=== PATIENT | male | born 1980 ===

== ENCOUNTER 2017-04-11 12:35 | Outpatient (CLI) | payer SELFPAY | END 2017-04-11 12:36 | disposition EMS.NT | LOC: EMS 12:35 | PROVIDERS: ATTEND Surgery | DX: Z04.1 Encounter for examination and observation following transport accident (principal); V53.5XXA Driver of pick-up truck or van injured in collision with car, pick-up truck or van in traffic accident, initial encounter; Y92.413 State road as the place of occurrence of the external cause ==